=== PATIENT | male | born 2000 | race African-American/Black ===

== ENCOUNTER 2021-03-05 04:38 | Inpatient (IN) | payer OTHER, SELFPAY ==
[2021-03-05] MEDS ORDERED: Fentanyl 100 MCG/2 ML VIAL ONE (04:50)
[2021-03-05 05:11] LABS: ALT (SGPT) 26 U/L (8-55); AST (SGOT) 41 U/L (10-45); Albumin 3.7 g/dL (3.5-5.0); Alkaline Phosphatase 68 U/L (50-130); Anion Gap 13 mmol/L (10-20); BUN (Urea Nitrogen) 11 mg/dL (8.4-21.0); Bilirubin, Total 0.5 mg/dL (0.2-1.2); Calc. Creatinine Clearance 0 mL/min (70-130); Carbon Dioxide 26 mmol/L (22-29); Chloride 102 mmol/L (98-107); Globulin 3.5 g/dL (2.4-3.5); Glucose 181 mg/dL (70-105); Potassium 3.7 mmol/L (3.5-5.1); Protein, Total 7.2 g/dL (6.0-8.3); Sodium 137 mmol/L (136-145)
[2021-03-05 05:30] LABS: Band 33 % (5-11); Hemoglobin 14.6 g/dL (14.0-18.0); Lymphocytes 6 % (28-48); MDiff Complete? YES; Mean Corpuscular HGB CONC 31.9 g/dL (32.0-36.0); Mean Corpuscular Hemoglobin 28.9 pg (25.0-35.0); Mean Corpuscular Volume 90.6 fL (78.0-98.0); Mean Platelet Volume 8.3 fL (7.4-10.4); Monocytes 5 % (0-4); Neutrophil 55 % (31-61); Platelet Count 251 thou/uL (130-400); RBC Distribution Width 14.4 % (11.5-14.5); Reactive Lymphocytes 1 % (0-10); Red Blood Cell (RBC) Count 5.05 mill/uL (4.00-5.20); White Blood Cell (WBC) Count 31.3 thou/uL (4.8-10.8)
[2021-03-05] MEDS ORDERED: Ketamine 50 MG/ML (10ML VIAL) ONE (07:09)
[2021-03-05] MEDS ORDERED: Lorazepam 2 MG/ML VIAL ONE (07:36)
[2021-03-05] MEDS ORDERED: Iopamidol-370 76% 500 ML 1 ML ONE (08:52)
[2021-03-05 09:40] LABS: SARS-CoV-2 NAA Rapid Test Not Detected (NotDetected)
[2021-03-05] MEDS ORDERED: hydrALAZINE 20 MG/ML VIAL SLOW IVP PRN (11:55)
[2021-03-05] MEDS ORDERED: Ondansetron ODT 4 MG TAB PO PRN (11:55)
[2021-03-05] MEDS ORDERED: Dextrose 5% in Water 1,000 ML IV PRN (11:55)
[2021-03-05] MEDS ORDERED: Dextrose 50% Abboject 50 ML SYRINGE SLOW IVP PRN (11:55)
[2021-03-05] MEDS ORDERED: traMADol HCl 50 MG TAB PO PRN (11:59)
[2021-03-05] MEDS ORDERED: CEFAZOLIN 2 GM in Premix Bag 1 BAG IVPB SCH (12:30)
[2021-03-05] MEDS ORDERED: Fentanyl 250 MCG/5 ML VIAL ONE (13:22)
[2021-03-05] MEDS ORDERED: PROPOFOL 200 MG/20 ML VIAL ONE (13:58)
[2021-03-05] MEDS ORDERED: Ondansetron PF 4 MG/2 ML Vial ONE (13:58)
[2021-03-05] MEDS ORDERED: Glycopyrrolate 0.2 MG/ML 5 ML SYRINGE ONE (13:58)
[2021-03-05] MEDS ORDERED: Succinylcholine 200 MG/10 ml SYRINGE FS ONE (13:58)
[2021-03-05] MEDS ORDERED: Dexamethasone 20 MG/5 ML VIAL ONE (13:58)
[2021-03-05] MEDS ORDERED: PHENYLEPHRINE-NS 100 MCG/ML 10 ML SYRINGE ONE (13:58)
[2021-03-05] MEDS ORDERED: Lidocaine 1% PF 5 ML VIAL ONE (13:58)
[2021-03-05] MEDS ORDERED: Ketorolac Tromethamine 30 MG/ML VIAL ONE (13:58)
[2021-03-05] MEDS ORDERED: Vecuronium 10 MG VIAL ONE (13:58)
[2021-03-05] MEDS ORDERED: Promethazine HCl 25 MG/ML VIAL IM PRN (16:07)
[2021-03-05] MEDS ORDERED: Ondansetron HCl/PF 4 MG/2 ML Vial IVP PRN (16:07)
[2021-03-05] MEDS ORDERED: Meperidine HCl/PF 25 MG/ML VIAL SLOW IVP PRN (16:07)
[2021-03-05] MEDS ORDERED: Ketorolac Tromethamine 30 MG/ML VIAL IVP PRN (16:07)
[2021-03-05] MEDS ORDERED: Promethazine HCl 25 MG/ML VIAL SLOW IVP PRN (16:07)
[2021-03-05] MEDS ORDERED: PACU-Morphine 4MG/ML VIAL SLOW IVP PRN (16:07)
[2021-03-05] MEDS ORDERED: Morphine Sulfate 2 MG/ML SYRINGE SLOW IVP PRN (16:07)
[2021-03-05] MEDS ORDERED: HYDROmorphone 2 MG/ML VIAL SLOW IVP PRN (16:07)
[2021-03-05] MEDS ORDERED: Albuterol Sulfate 1.25 MG/3 ML NEB ONE (17:14)
[2021-03-05 17:38] LABS: Actual Bicarbonate (HCO3a) 25.2 mEq/L (22-28); Analyzer IN Cardio OR; Base Excess (BEa) -0.6 mEq/L (-2.0 to +3.0); CO2 Tension 45.7 mmHg (35.0-45.0); Calcium, Ionized (arterial) 1.13 mmol/L (1.12-1.30); Carboxyhemoglobin (COHb) 1.1 gm% (0.0-3.0); Hemoglobin (Hb) 14.2 g/dL (11.4-15.4); Puncture Site LRA; pH, Arterial 7.36 (7.35-7.45)
[2021-03-05 17:39] LABS: ALV-art Gradient 105.595 mmHg (0-20)
[2021-03-05] MEDS ORDERED: hydrALAZINE 20 MG/ML VIAL ONE (17:49)
[2021-03-05] MEDS: Acetaminophen 325 MG TAB PO SCH ×3 (19:35→23:10)
[2021-03-05] MEDS: traMADol HCl 50 MG TAB PO SCH ×3 (19:35→23:11)
[2021-03-05] MEDS: CEFAZOLIN 2 GM in Premix Bag 1 BAG IVPB SCH ×2 (19:35→22:18)
[2021-03-05] MEDS: Ibuprofen 200 MG TAB PO SCH ×3 (19:36→22:38)
[2021-03-05] MEDS: Famotidine 20 MG TAB PO SCH (19:48)
[2021-03-06 05:48] LABS: #Lymphocytes 1.2 thou/uL (1.20-3.40); #Monocytes 1.1 thou/uL (0.11-0.59); #Neutrophils 9.4 thou/uL (1.40-6.50); %Basophils 0.1 % (0.0-1.0); %Eosinophils 0.1 % (0.0-10.0); %Monocytes 9.4 % (0.0-4.0); %Neutrophils 80.5 % (31.0-61.0); Hemoglobin 12.7 g/dL (14.0-18.0); Mean Corpuscular HGB CONC 32.5 g/dL (32.0-36.0); Mean Corpuscular Hemoglobin 29.6 pg (25.0-35.0); Mean Platelet Volume 8.9 fL (7.4-10.4); Platelet Count 193 thou/uL (130-400); RBC Distribution Width 14.4 % (11.5-14.5); Red Blood Cell (RBC) Count 4.28 mill/uL (4.00-5.20); White Blood Cell (WBC) Count 11.7 thou/uL (4.8-10.8)
[2021-03-06 06:04] LABS: Anion Gap 10 mmol/L (10-20); BUN (Urea Nitrogen) 12 mg/dL (8.4-21.0); Calc. Creatinine Clearance 1 mL/min (70-130); Calcium 8.6 mg/dL (7.8-10.44); Carbon Dioxide 27 mmol/L (22-29); Chloride 103 mmol/L (98-107); Glucose 125 mg/dL (70-105); Potassium 4.4 mmol/L (3.5-5.1); Sodium 136 mmol/L (136-145)
[2021-03-06] MEDS: Acetaminophen 325 MG TAB PO SCH (06:39)
[2021-03-06] MEDS: traMADol HCl 50 MG TAB PO SCH (06:40)
[2021-03-06] MEDS: Ibuprofen 200 MG TAB PO SCH ×3 (06:41→21:16)
[2021-03-06] MEDS: Famotidine 20 MG TAB PO SCH ×2 (09:30→21:16)
[2021-03-06] MEDS: Polyethylene Glycol 3350 17 GM Packet PO SCH (09:31)
[2021-03-06] MEDS: Acetaminophen 500 MG TAB PO SCH ×2 (11:29→17:09)
[2021-03-07] MEDS: Acetaminophen 500 MG TAB PO SCH ×4 (00:29→17:49)
[2021-03-07] MEDS: traMADol HCl 50 MG TAB PO PRN (00:29)
[2021-03-07 03:58] VITALS: BMI 41.1
[2021-03-07] MEDS: Ibuprofen 200 MG TAB PO SCH ×3 (06:28→21:08)
[2021-03-07] MEDS: Enoxaparin Sodium 40 MG/0.4 ML SYRINGE SC SCH (08:48)
[2021-03-07] MEDS: Famotidine 20 MG TAB PO SCH ×2 (08:48→21:08)
[2021-03-07] MEDS: Polyethylene Glycol 3350 17 GM Packet PO SCH (08:48)
[2021-03-07] MEDS ORDERED: traMADol HCl 50 MG TAB PO PRN (14:07)
[2021-03-08] MEDS: Acetaminophen 500 MG TAB PO SCH ×5 (00:18→23:59)
[2021-03-08] MEDS: Ibuprofen 200 MG TAB PO SCH ×3 (05:44→20:46)
[2021-03-08] MEDS: traMADol HCl 50 MG TAB PO PRN (09:50)
[2021-03-08] MEDS: Enoxaparin Sodium 40 MG/0.4 ML SYRINGE SC SCH (09:50)
[2021-03-08] MEDS: Polyethylene Glycol 3350 17 GM Packet PO SCH (09:51)
[2021-03-08] MEDS: Famotidine 20 MG TAB PO SCH ×2 (09:51→20:47)
[2021-03-09] MEDS: Acetaminophen 500 MG TAB PO SCH ×3 (05:34→18:30)
[2021-03-09] MEDS: Ibuprofen 200 MG TAB PO SCH ×3 (05:34→21:11)
[2021-03-09] MEDS: Enoxaparin Sodium 40 MG/0.4 ML SYRINGE SC SCH (08:42)
[2021-03-09] MEDS: Polyethylene Glycol 3350 17 GM Packet PO SCH (08:42)
[2021-03-09] MEDS: Famotidine 20 MG TAB PO SCH ×2 (08:43→21:12)
[2021-03-10] MEDS: Acetaminophen 500 MG TAB PO SCH ×4 (00:13→17:40)
[2021-03-10] MEDS: Ibuprofen 200 MG TAB PO SCH ×3 (06:16→20:12)
[2021-03-10] MEDS: Enoxaparin Sodium 40 MG/0.4 ML SYRINGE SC SCH (09:16)
[2021-03-10] MEDS: Famotidine 20 MG TAB PO SCH ×2 (09:16→20:13)
[2021-03-10] MEDS: Polyethylene Glycol 3350 17 GM Packet PO SCH (09:16)
[2021-03-10] MEDS: Senokot S 8.6-50 MG TAB PO SCH (20:09)
[2021-03-10] MEDS: ceFAZolin 1 GM/D5W 1 GM in Premix Bag 1 BAG IVPB SCH (21:20)
[2021-03-11] MEDS: Acetaminophen 500 MG TAB PO SCH ×3 (00:15→14:28)
[2021-03-11] MEDS: Ibuprofen 200 MG TAB PO SCH ×2 (06:05→14:45)
[2021-03-11] MEDS: ceFAZolin 1 GM/D5W 1 GM in Premix Bag 1 BAG IVPB SCH (06:07)
[2021-03-11 07:53] LABS: #Basophils 0.1 thou/uL (0.0-0.2); #Eosinphils 0.5 thou/uL (0.0-0.7); #Lymphocytes 1.6 thou/uL (1.20-3.40); #Monocytes 0.7 thou/uL (0.11-0.59); #Neutrophils 6.5 thou/uL (1.40-6.50); %Basophils 0.7 % (0.0-1.0); %Eosinophils 4.9 % (0.0-10.0); %Lymphocytes 17.2 % (28.0-48.0); %Monocytes 7.4 % (0.0-4.0); %Neutrophils 69.8 % (31.0-61.0); Hemoglobin 11.2 g/dL (14.0-18.0); Mean Corpuscular HGB CONC 33.3 g/dL (32.0-36.0); Mean Corpuscular Volume 90.2 fL (78.0-98.0); Mean Platelet Volume 7.9 fL (7.4-10.4); Platelet Count 212 thou/uL (130-400); RBC Distribution Width 14.7 % (11.5-14.5); Red Blood Cell (RBC) Count 3.72 mill/uL (4.00-5.20); White Blood Cell (WBC) Count 9.3 thou/uL (4.8-10.8)
[2021-03-11 11:29] VITALS: BP 130/80; TEMP 98.1
[2021-03-11] MEDS ORDERED: CEFAZOLIN 2 GM in Premix Bag 1 BAG IVPB SCH (14:00)
[2021-03-11] MEDS: Enoxaparin Sodium 40 MG/0.4 ML SYRINGE SC SCH (14:27)
[2021-03-11] MEDS: Famotidine 20 MG TAB PO SCH (14:45)
[2021-03-11] MEDS: Polyethylene Glycol 3350 17 GM Packet PO SCH (14:45)
[2021-03-11] MEDS: Senokot S 8.6-50 MG TAB PO SCH (14:45)
== END 2021-03-11 15:00 | disposition home or self-care (01) | DRG 493 ==
LOC: ERS 04:38 → SDC 11:55 → SJJU 18:40
PROVIDERS: ADMIT Surgery; ATTEND Surgery
PROC: 0QSJ04Z Reposition Right Fibula with Internal Fixation Device, Open Approach (ICD-10-PCS; principal; 2021-03-05)
PROC: 0PSH04Z Reposition Right Radius with Internal Fixation Device, Open Approach (ICD-10-PCS; 2021-03-05)
PROC: 0PSK04Z Reposition Right Ulna with Internal Fixation Device, Open Approach (ICD-10-PCS; 2021-03-05)
PROC: 0SSFXZZ Reposition Right Ankle Joint, External Approach (ICD-10-PCS; 2021-03-05)
PROC: 5A1935Z Respiratory Ventilation, Less than 24 Consecutive Hours (ICD-10-PCS; 2021-03-05)
DX: S82.401A Unspecified fracture of shaft of right fibula, initial encounter for closed fracture (principal); S27.322A Contusion of lung, bilateral, initial encounter; S52.591A Other fractures of lower end of right radius, initial encounter for closed fracture; S52.291A Other fracture of shaft of right ulna, initial encounter for closed fracture; Z20.822 Contact with and (suspected) exposure to COVID-19; J45.909 Unspecified asthma, uncomplicated; G47.33 Obstructive sleep apnea (adult) (pediatric); V47.5XXA Car driver injured in collision with fixed or stationary object in traffic accident, initial encounter; Y92.410 Unspecified street and highway as the place of occurrence of the external cause
CPT/HCPCS: 0240U; 27840; 36415; 36600; 70450; 71045; 71260; 72125; 74177; 76000; 80048; 80053; 82805; 85025; 94640; 94660; 96374; 96375; 99152; C1713; G0390; J0360; J0690; J1100; J1650; J1885; J2060; J2405; J2704; J3010; J7620; Q9967